=== PATIENT | female | born 1955 | race Caucasian/White ===

== ENCOUNTER 2023-03-29 11:27 | Outpatient (AMB) | payer MEDICARE, SELFPAY ==
--- NOTE | 2023-03-29 12:17 | AM.OFFWIN_ITS ---
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 Pt is unable to sit. Patient Tobacco Use Status: Never used Tobacco Allergies amoxicillin Adverse Reaction (Intermediate, Verified 03/29/23 12:26) Unknown sulfamethoxazole [From Bactrim] Adverse Reaction (Intermediate, Verified 03/29/23 12:26) Rash trimethoprim [From Bactrim] Adverse Reaction (Intermediate, Verified 03/29/23 12:26) Rash Do you need a note to return to daycare/school/sports/work: No HPI HPI Comments History of Present Illness Details 67-year-old female presents with sudden onset of lower back pain, the pain is so intense that she could not stand up straight or sit down. She when out to her garden this morning around 7, bent over, and could not stand back up. She does not report any symptoms indicating cauda equina, denies fevers, chills, and trauma. FOR[facility]LY [facility] Social History Patient Tobacco Use Status: Never used Tobacco Review of Systems Const Details: Constitutional: No Fever, No Chills Cardiovascular: No Chest Pain, No SOB Respiratory: No Cough, No Dyspnea Gastrointestinal: No Nausea, No Vomiting, No Diarrhea, No abdominal Pain Genitourinary: No Dysuria, No Hematuria Musculoskeletal: positive lower back pain, No Myalgias, No Joint Swelling Skin: No Skin lacerations, No rash Neuro: No Weakness, No Numbness, No Paresthesias, No Dizziness, No Headache All systems reviewed & are unremarkable except as noted in HPI and below Physical Exam Vital Signs: Last Vital Signs Temp 97.1 F 03/29/23 12:27 Pulse 84 03/29/23 12:27 BP 160/92 H 03/29/23 12:27 Pulse Ox 97 03/29/23 12:27 Oxygen Delivery Method Room Air 03/29/23 12:27 Appearance: Alert. Oriented X3. No acute distress. Eyes: Pupils equal, round and reactive to light. Neck: Normal inspection. Neck supple. CVS: Normal heart rate and rhythm. Pulses normal. Respiratory: No respiratory distress. Breath sounds normal. Skin: Skin warm and dry. Normal skin color. Normal skin turgor. Extremities: No lower extremity edema. Strength 5/5 to all extremities. Brisk capillary refill and equal pulses. Neuro: No motor deficit. No sensory deficit. Cranial nerves 2-12 intact. Office Meds ketorolac Performing Provider: Leanne Blake NP Administered by: Amina Georges RN on 03/29/23 12:48 Dose Route Admin Location Lot Number Expiration Date NDC Income Auditor 30 mg IM Left gluteus [id number] 01/16/24 [id number] Comments: Instructed pt to not take any OTC NSAIDS 8-10 hours post injection. Assessment & Plan Assessment & Plan (1) Strain of lumbar paraspinous muscle: Code(s): S39.012A - Strain of muscle, fascia and tendon of lower back, initial encounter Plan 67-year-old female presents with muscle spasm to the lower lumbar, occurred after bending over while watering her plants this morning around 07:00. Patient states that she is unable to stand up straight, or sit down because of the spasming pain. She does not report any symptoms indicating cauda equina, and denies fevers or chills and trauma. Currently she appears to be in moderate distress secondary to pain, and is unable to sit down, is leaning forward with her elbows resting on the counter. Patient has palpable spasms to the bilateral lumbar region, and was ambulatory upon arrival. Patient is walking without difficulty, is alert oriented x4, answering questions politely and appropriately, with stable vital signs that are within normal limits with the exception of an elevated blood pressure. Plan of care is for Toradol injection, order for cyclobenzaprine muscle relaxer. I did discuss risks versus benefits of taking this medication. Supportive measures with Tylenol, and Motrin. Patient does understand not to take cyclobenzaprine same time is taking Motrin. Patient verbalized understanding of discharge instructions. Verbalized understandings of signs and symptoms indicating need for emergent intervention. Orders: Orders AMB Ketorolac Injection Today S39.012A - Strain of muscle, fascia and tendon of lower back, initial encounter Medications: New cyclobenzaprine 10 mg PO TID PRN 30 tabs 0RF muscle spasm Patient Instructions: You were evaluated for lumbar muscle strain. Take cyclobenzaprine 10 mg every 8 hours as needed. This medication is a muscle relaxer, this medication can delay reaction time, increased risk for falls, and cause drowsiness. Do not drive or operate machinery while taking this medication. wait 3 hours after taking Motrin to take this medication. Do not take this medication at the same time as taking Motrin. Alternate Tylenol 650 mg every 6 hours and Motrin 600 mg every 6 hours as needed for pain management. Consider taking these medications 3 hours apart so you have pain and fever management every 3 hours. Write down what time you take these medications to prevent accidental overdose. Motrin is the same medication as Advil and ibuprofen. Tylenol is the same medication as acetaminophen. If you develop numbness, loss of balance, loss of continence of bowel or bladder, present to the emergency department immediately as these are symptoms of a neurological emergency. Thank you for choosing this urgent care for evaluation. Please follow-up with primary care physician as needed. Return to the emergency department for any new, concerning, or worsening symptoms. Coding Level of Care Code Est Pt Level 3 (70931) Diagnoses Strain of lumbar paraspinous muscle S39.012A
[2023-03-29 12:27] VITALS: BP 160/92; PULSE 84; TEMP 36.2; O2SAT 97
== END 2023-03-29 13:18 | disposition home or self-care (01) ==
PROVIDERS: PCP Nurse Practitioner Family; Visit Provider Nurse Practitioner Family
DX: S39.012A Strain of muscle, fascia and tendon of lower back, initial encounter (principal)
CPT/HCPCS: 96372; 99213; J1885